=== PATIENT | male | born 1960 | race Caucasian/White ===

== ENCOUNTER 2017-01-03 23:49 | Emergency (ER) | payer MEDICAID ==
--- NOTE | ~2017-01-03 | EKG ---
PATIENT: ROSELIA WILLINGHAM UNIT #: [id number] Ventricular Rate: 78 BPM Atrial Rate: 78 BPM P-R Interval: 154 ms QRS Duration: 96 ms Q-T Interval: 406 ms QTC Calculation(Bezet): 462 ms P [place]: 53 degrees Calculated R [place]: -11 degrees Calculated T [place]: -11 degrees Diagnosis Line: Normal sinus rhythm Diagnosis Line: Incomplete right bundle branch block Diagnosis Line: Otherwise normal ECG Diagnosis Line: When compared with ECG of 04-JAN-2017 00:43, Diagnosis Line: (unconfirmed) Diagnosis Line: No significant change was found Diagnosis Line: Confirmed by EVIN MCINTYRE MD ([id number]) on 01/04/2017 Diagnosis Line: 8:08:32 PM INTERPRETING MD: MIGUELINA MARTINEZ
[~2017-01-03 23:49] MED LIST: ASPIRIN EC81 M1 PO; ASPIRIN81 M2 PO; BACTRIM DS TABL1 TA1 PO; BUPROPION HCL150 M3 PO; LISINOPRIL10 MG PO; LOPID600 MG PO; METOPROLOL TAR25 MG PO; QUETIAPINE FUMA50 MG PO; TRAZODONE HCL100 MG PO; ZITHROMAX PO; ZOLOFT PO
[2017-01-04 03:22] LABS: AMPHETAMINE POS (NEG); BARBITURATES NEG (NEG); BENZODIAZEPINES NEG (NEG); COCAINE NEG (NEG); MARIJUANA NEG (NEG); OPIATES POS (NEG); TRICYCLIC ANTIDEPRESSANTS NEG (NEG); U METHADONE NEG (NEG)
[2017-01-04 04:14] LABS: POC - CKMB 1.7 ng/mL (0.0-7.9); POC - TROPONIN <0.05 ng/mL (<=0.05)
[2017-01-04 04:45] LABS: ACETAMINOPHEN <10 ug/mL; ALBUMIN SERUM 3.8 g/dL (3.5-5.0); ALCOHOL BLOOD <5 mg/dL (0); ALKALINE PHOSPHATASE 94 U/L (32-92); ALT (SGPT) 23 U/L (10-40); AST (SGOT) 21 U/L (10-42); BILIRUBIN, DIRECT 0.1 mg/dL (0.0-0.2); BILIRUBIN,INDIRECT 0.4 mg/dL (0.0-0.9); BILIRUBIN,TOTAL 0.5 mg/dL (0.2-2.0); BLOOD UREA NITROGEN 15 mg/dL (9-23); BUN/CREATININE RATIO 18.75; CALCIUM SERUM 8.1 mg/dL (8.4-10.2); CARBON DIOXIDE 26 mmol/L (22-31); CHLORIDE 104 mmol/L (100-111); CPK (CREATINE PHOSPHOKINASE) 129 IU/L (36-174); CREATININE SERUM 0.8 mg/dL (0.6-1.4); GLOM FILT RATE Estimated 101.3 mL/min (>60); GLUCOSE FASTING 137 mg/dL (70-110); POTASSIUM 3.3 mmol/L (3.5-5.1); PROTEIN TOTAL SERUM 6.7 g/dL (6.0-8.3); SALICYLATE <4.0 mg/dL; SODIUM 136 mmol/L (135-145)
== END 2017-01-04 05:35 | disposition home or self-care (01) ==
LOC: CED 23:49
PROVIDERS: Emergency Medicine
DX: F11.10 Opioid abuse, uncomplicated (principal); F15.10 Other stimulant abuse, uncomplicated; I10 Essential (primary) hypertension; F17.210 Nicotine dependence, cigarettes, uncomplicated
CPT/HCPCS: 36415; 80048; 80076; 80307; 82550; 82553; 84484; 93005; 96365; 96375; 99284; G0480; J3411; J3475

== ENCOUNTER 2017-03-08 05:11 | Emergency (ER) | payer MEDICAID | END 2017-03-08 06:05 | disposition home or self-care (01) | LOC: CED 05:11 | DX: S01.01XA Laceration without foreign body of scalp, initial encounter (principal); S01.81XA Laceration without foreign body of other part of head, initial encounter; S01.80XA Unspecified open wound of other part of head, initial encounter; I10 Essential (primary) hypertension; R56.9 Unspecified convulsions; F17.200 Nicotine dependence, unspecified, uncomplicated; X99.8XXA Assault by other sharp object, initial encounter; Y92.009 Unspecified place in unspecified non-institutional (private) residence as the place of occurrence of the external cause | CPT/HCPCS: 12011; 99283 ==

== ENCOUNTER 2017-03-24 22:08 | Emergency (ER) | payer MEDICAID ==
[~2017-03-24] VITALS: Ht 188 cm; Wt 99.8 kg
== END 2017-03-24 23:48 | disposition home or self-care (01) ==
LOC: CED 22:08
DX: L02.811 Cutaneous abscess of head [any part, except face] (principal); S01.01XD Laceration without foreign body of scalp, subsequent encounter; W45.8XXD Other foreign body or object entering through skin, subsequent encounter
CPT/HCPCS: 87070; 87077; 87186; 87205; 99282